=== PATIENT | male | born 1985 | race Caucasian/White ===

== ENCOUNTER 2021-03-18 08:44 | Day surgery (SDC) | payer BC, OTHER ==
[~2021-03-18] VITALS: Ht 180.3 cm; Wt 81.6 kg
[~2021-03-18 08:44] MED LIST: BUPROPION XL300 MG PO; CLONAZEPAM 1 MG1 M1 PO; LIPITOR 40 MG T40 M1 PO; MULTI VITAMIN1 EACH PO; ZOLPIDEM TARTRA10 MG PO
[2021-03-18 10:03] VITALS: BP 123/80
[2021-03-18 11:27] VITALS: BP 123/80
--- NOTE | 2021-03-18 16:48 | O ---
[address] [address] OPERATIVE REPORT Name: LUPE CARVALHO Room #: DEP [facility]..#: [id number] Admission: 03/18/21 Attend Phys: Andrew Mari MD Discharge: 03/18/21 Date of : 83 Report #: [id number] THIS REPORT FOR: cc: Jeffrey Mcginnis James A. DO McCabe, Michael P. MD ~ DOC #: [id number] Andrew Mari MD DATE OF SERVICE: 03/18/2021 DATE OF PROCEDURE: 03/18/2021 SERVICE: Orthopedics. FACILITY: [place]. SURGEON: Andrew Mari MD AUTO BODY CUSTOMIZER: Moni Green NP. PREOPERATIVE DIAGNOSES: 1. Left knee pain. 2. Left knee partial thickness articular cartilage lesion of the medial femoral condyle. POSTOPERATIVE DIAGNOSES: 1. Left knee pain. 2. Left knee partial thickness articular cartilage lesion of the medial femoral condyle. PROCEDURE: Left knee arthroscopy with chondroplasty. COMPLICATIONS: None. DRAINS: None. SPECIMENS: None. FINDINGS: 1. Intact lateral and patellofemoral compartment. 2. Intact menisci. 3. Intact cruciates. 4. 12 mm x 7 mm partial thickness area of loose superficial articular cartilage, treated with chondroplasty with no grade 4 lesions noted. HISTORY: The patient is a 35-year-old male who is active with physical fitness [address] [address] OPERATIVE REPORT Name: LUPE CARVALHO Room #: DEP [facility].#: [id number] Admission: 03/18/21 Attend Phys: Andrew Mari MD Discharge: 03/18/21 Date of : 83 Report #: [id number] who has had persistent left knee pain despite an extensive conservative course including rest, activity modifications, physical therapy, injections, oral medicines, modalities, etc. 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 The MRI showed a partial thickness flap tear of the medial femoral condyle articular cartilage and the menisci and cruciates were intact. The cartilage was intact otherwise. Specifically, this medial femoral condyle lesion did not have any secondary effects of the bone and there was no evidence of a full thickness lesion. We had a lengthy conversation. He is overall successful in maintaining an active lifestyle, but was having a near constant sensation of pressure and periodic pain within the knee and we discussed treatment options and elected for a diagnostic approach with a chondroplasty and additional procedures as indicated. Risks, benefits, alternatives and indications for the surgery were discussed with him in detail. Risks include but not limited to pain, bleeding, infection, injuring nerves or blood vessels, persistent pain despite surgical intervention, failure of any repairs, progression of preexisting chondral injury, stiffness, need for further surgery as well as complications related to anesthesia. Despite the risks, he wished to proceed. PROCEDURE IN DETAIL: After left lower extremity was correctly identified in the preoperative holding area as the operative extremity, the patient was taken to the operating room where general anesthesia was induced without complications. He was padded appropriately. Prophylactic antibiotics were administered at appropriate time. Tourniquet was applied to left leg. Left lower extremity was then prepped and draped in standard sterile fashion. Timeout procedure performed. Esmarch was used. Tourniquet inflated to 250 mmHg. Standard anterolateral viewing portal was established followed by anteromedial working portal. Diagnostic arthroscopy was performed revealing the above findings. The medial femoral condyle had the lesion that was ultimately measured at 12 mm x 7 mm post-debridement. Upon initial inspection, the pathologic area was well visualized. All of this was probed and visualized and confirmed to be partial thickness. There was no evidence of grade 4 lesion and there was no blistering at the condyle elsewhere. The shaver was used to perform a chondroplasty and again confirmed that this was an exclusively partial thickness lesion and reinforced the approach for a more conservative simple chondroplasty treatment as opposed to other articular cartilage reconstructive procedures. After chondroplasty was performed, the probe was used to confirm stability. The arthroscopic effusion was drained. Instruments were removed. Portal sites were closed. Sterile dressing was applied followed by compression stocking. The patient was awakened from anesthesia and taken to recovery room in stable condition. No complications. All counts were correct. Andrew Mari MD [facility]/[address] [address] OPERATIVE REPORT Name: LUPE CARVALHO [facility]: [id number] Admission: 03/18/21 Attend Phys: Andrew Mari MD Discharge: 03/18/21 Date of : 83 Report #: [id number] <ELECTRONICALLY SIGNED> By: Andrew Mari MD 03/18/21 [id number] Andrew Mari MD /nt
== END 2021-03-18 11:50 | disposition home or self-care (01) ==
LOC: OR 08:44 → TBA 08:47 → OR 08:56
PROVIDERS: ATTEND Orthopaedic Surgery Sports Medicine
DX: M25.562 Pain in left knee (principal); M24.19 Other articular cartilage disorders, other specified site; M94.262 Chondromalacia, left knee; E78.5 Hyperlipidemia, unspecified; K21.9 Gastro-esophageal reflux disease without esophagitis; Z98.890 Other specified postprocedural states; Z79.899 Other long term (current) drug therapy
CPT/HCPCS: 50010; 50101; 50405; 56527; 57103; 57180; 58560; 58589; 62110; 62900; 70005